=== PATIENT | male | born 1955 | race Caucasian/White ===

== ENCOUNTER → 2020-07-31 | Outpatient (CLI) | payer MEDICARE, MEDICAID ==
[~2020-07-31] MED LIST: AMLO10TA80 PO; ASPI-1497 PO; IBUP-2029 PO; INSU3INS8 SUBCUT; LISI-649 PO; METF-414 PO; SIMV-43 PO
== END | disposition home or self-care (01) ==
LOC: LAB 10:43
PROVIDERS: ATTEND Orthopaedic Surgery
DX: Z20.828 Contact with and (suspected) exposure to other viral communicable diseases (principal)
CPT/HCPCS: C9803; U0003

== ENCOUNTER 2020-08-04 08:07 | Day surgery (SDC) | payer MEDICARE, MEDICAID ==
[~2020-08-04] VITALS: Ht 167.6 cm; Wt 73.5 kg
[2020-08-04] MEDS ORDERED: LACTATED RINGERS 1,000 ML IV SCH (09:05)
[2020-08-04] MEDS ORDERED: BUPIVACAINE/EPINEPH/PF 0.25%/0.0005 10ML ONE (09:11)
[2020-08-04] MEDS ORDERED: AMLO10TA80 PO (09:39)
[2020-08-04] MEDS ORDERED: INSU3INS8 SUBCUT (09:39)
[2020-08-04] MEDS ORDERED: ASPI-1497 PO (09:39)
[2020-08-04] MEDS ORDERED: IBUP-2029 PO (09:39)
[2020-08-04] MEDS ORDERED: LISI-649 PO (09:39)
[2020-08-04] MEDS ORDERED: METF-414 PO (09:39)
[2020-08-04] MEDS ORDERED: SIMV-43 PO (09:39)
[2020-08-04] MEDS ORDERED: BACITRACIN 50,000 UNITS/VIAL ONE (10:07)
[2020-08-04] MEDS ORDERED: VANCOMYCIN HCL 1 GM/VIAL ONE (10:08)
[2020-08-04] MEDS ORDERED: SODIUM CHLORIDE 0.9% INJ 10ML FLUSH IVF ONE (10:08)
[2020-08-04] MEDS ORDERED: MIDAZOLAM HCL 2 MG/2 ML VIAL ONE (10:09)
[2020-08-04] MEDS ORDERED: LIDOCAINE HCL/PF 1% 10 MG/ML 5ML VIAL ONE (10:09)
[2020-08-04] MEDS ORDERED: PROPOFOL 200MG/20ML VIAL IV ONE (10:09)
[2020-08-04] MEDS ORDERED: FENTANYL CITRATE/PF 50MCG/ML 2ML VIAL ONE ×2 (10:09→12:04)
[2020-08-04] MEDS ORDERED: CEFAZOLIN SODIUM 1000MG/VIAL ONE (10:11)
[2020-08-04] MEDS ORDERED: BUPIVACAINE HCL/PF 0.25% (2.5MG/ML) 10ML ONE (10:27)
[2020-08-04] MEDS ORDERED: GLYCOPYRROLATE 0.2 MG/ML 2ML VIAL ONE (10:29)
[2020-08-04] MEDS ORDERED: ONDANSETRON HCL 4MG/2ML INJ ONE ×2 (10:53→12:52)
[2020-08-04] MEDS ORDERED: KETOROLAC 30MG/ML VIAL ONE (10:53)
[2020-08-04] MEDS ORDERED: HYDROCODONE/ACETAMINOPHEN 10/325MG TABLET PO PRN (11:15)
[2020-08-04 11:58] VITALS: BP 118/68
[2020-08-04] MEDS ORDERED: ONDANSETRON HCL 4MG/2ML INJ IV PRN (12:00)
[2020-08-04] MEDS ORDERED: HYDROCODONE/ACETAMINOPHEN 5/325MG TABLET PO SCH (12:00)
[2020-08-04] MEDS ORDERED: FENTANYL CITRATE/PF 50MCG/ML 2ML VIAL IV PRN (12:00)
[2020-08-04] MEDS ORDERED: EPHEDRINE SULFATE 50MG/ML VIAL ONE (12:14)
[2020-08-04] MEDS ORDERED: DEXAMETHASONE 4MG/ML 1ML VIAL ONE (12:28)
== END 2020-08-04 14:10 | disposition home or self-care (01) ==
LOC: OR 08:07
PROVIDERS: ATTEND Orthopaedic Surgery
DX: L02.414 Cutaneous abscess of left upper limb (principal); S51.842A Puncture wound with foreign body of left forearm, initial encounter; W45.8XXA Other foreign body or object entering through skin, initial encounter; I10 Essential (primary) hypertension; K21.9 Gastro-esophageal reflux disease without esophagitis; E11.9 Type 2 diabetes mellitus without complications; E78.5 Hyperlipidemia, unspecified; Z79.82 Long term (current) use of aspirin; Z79.899 Other long term (current) drug therapy; Z79.4 Long term (current) use of insulin; Z98.890 Other specified postprocedural states; X58.XXXA Exposure to other specified factors, initial encounter; Y93.89 Activity, other specified; Y92.89 Other specified places as the place of occurrence of the external cause; Y99.8 Other external cause status
CPT/HCPCS: 10120; 11042; 73100; 82962; 87070; 87075; 87205; 88300; J0171; J0690; J1885; J2250; J2405; J2704; J3010; J3370; J3490; 76000; A4565; J1100